=== PATIENT | female | born 1990 | race Caucasian/White ===

== ENCOUNTER 2024-11-14 08:04 | Emergency (ER) | payer BC, SELFPAY ==
[2024-11-14 08:05] VITALS: BP 130/79
--- NOTE | 2024-11-14 08:10 | ED.GENMED ---
History of Present Illness
General
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
Time Seen by Provider: 11/14/24 08:10
History of Present Illness
History of Present Illness:
FOCUSED PAST MEDICAL HISTORY
- Hypothyroidism, has had herpes
REVIEW OF OLD RECORDS
- No old records available for review in [facility]
Note:
CHIEF COMPLAINT(S)
Pain and swelling on the wall of the labia, starting night.
HISTORY OF PRESENT ILLNESS
The patient is a [id number] female presenting with pain and swelling on the wall of the labia, which began on night. The parent reports no prior occurrences of similar symptoms. No fever has been noted. The patients parent is in
communication with the patients sales applications engineer via their portal. The patient has been applying warm compresses to the area without resolution of symptoms.
PHYSICAL EXAM
General: Alert, no acute distress.
Skin: Warm, dry.
Head: Normocephalic, atraumatic.
Neck: Supple, trachea midline.
Ears, Nose, Mouth, and Throat: Oral mucosa moist.
Cardiovascular: Normal peripheral perfusion, No edema.
: There is a 2 cm cystic lesion in the lower left labial region with no surrounding cellulitis�there is moderate tenderness to palpation
Respiratory: Respirations are non-labored.
Gastrointestinal: Abdomen nondistended.
Back: Normal range of motion, Normal alignment.
Musculoskeletal: Normal ROM, normal strength.
Neurological: Alert and oriented to person, place, time, and situation, No focal neurological deficit observed.
Psychiatric: Cooperative, appropriate mood & affect.
PROBLEM LIST
Acute: Pain and swelling on the labia.
PLAN
The plan involves administering local anesthesia to the affected area, making a small incision to allow for drainage of pus. A word catheter will be applied if available, although its presence was not confirmed during this encounter.
DIFFERENTIAL DIAGNOSIS
The Differential Diagnosis includes, in no particular order and is not limited to:
1. Bartholins cyst
2. Abscess
3. Localized cellulitis
4. Folliculitis
5. Hematoma
6. Vulvovaginitis
7. Infected sebaceous cyst
8. Lymphadenitis
9. Contact dermatitis
10. Inguinal hernia
Disposition:
SUMMARY OF ENCOUNTER
The patient, a [id number] female, presented to the emergency department with pain and swelling on the wall of the labia since night, indicating a potential Bartholins cyst or abscess. The warm compresses applied had not resolved the
symptoms. On examination, findings were consistent with a Bartholins cyst/abscess.
PROCEDURES
Bartholin cyst drainage and placement of Word catheter
PLAN
The plan is for the patient to continue following up with their sales applications engineer for further management and monitoring of the condition to ensure complete healing and to address any potential recurrence.
MEDICAL DECISION MAKING
-Complexity of Data Reviewed: Acute condition affecting care - differential diagnosis included Bartholins cyst, abscess, localized cellulitis, folliculitis, hematoma, vulvovaginitis, infected sebaceous cyst, lymphadenitis, contact dermatitis, and
inguinal hernia. The most likely was a Bartholins cyst/abscess given the presentation and examination findings.
DIAGNOSIS
Bartholins cyst/abscess (ICD-10-CM: N75.1)
This note is generated from the clinical content provided, capturing critical information of the encounter and care management for accurate medical documentation.
Phy Exam
Physical Exam
Physical Exam:
See HPI
Course
Orders/Labs/Results
Orders:
Orders
11/14/24 08:34
Wound Culture [Wound/Abscess/Other Culture] Urgent
SON Source: Abscess
Specimen Description:
Date Specimen was Collected: 11/14/24
Time Specimen was Collected: 08:36
Comment: L labia / bartholin's
Sulfamethox./Trimethoprim Ds [Bactrim Ds 800 mg/160 mg] 1 tablet PO NOW STA
Vital Signs
Initial and Last Documented VS:
Initial Vital Signs
Temp Pulse Resp BP Pulse Ox
37.0 C 90 16 130/79 98
11/14/24 08:05 11/14/24 08:05 11/14/24 08:05 11/14/24 08:05 11/14/24 08:05
Last Documented Vital Signs
Temp Pulse Resp BP Pulse Ox
37.0 C 90 16 130/79 98
11/14/24 08:05 11/14/24 08:05 11/14/24 08:05 11/14/24 08:05 11/14/24 08:11
Procedures
Incision/Drainage/Joint Aspiration
Left Lower Vagina:
Anethesia: 1% Lidocaine with Epi
Preparation: cleaned with Hibiclens
Type of procedure: incise and drain
Nature of site: abscess
Description of abscess: less than 3cm
Loculations broken up: Yes
How much fluid was obtained?: small amount
Fluid description: cloudy and purulent
Treatment: other (Word catheter)
*Pulse Oximetry
SaO2: 98
Oxygen Mode of Delivery: Room air
Patient hypoxic: no
*Critical Care Note
Total Time (30-74mins, 75-104mins- exclusive of procedures): Not Applicable
ED Attending Note
-
Portions of this chart may have been created with voice recognition software.� Occasional wrong word or��sound alike� substitutions may have occurred due to the inherent limitations of voice recognition software.
Discharge Plan
Departure
Patient Disposition: Home (Routine Discharge)
Date of Disposition: 11/14/24
Time of Disposition: 08:35
Patient with high blood pressure during this ER visit?: Yes
Discharge Problem:
Bartholin's gland abscess
Instructions: Bartholin gland cyst, BLOOD PRESSURE
Prescriptions:
New
sulfamethoxazole-trimethoprim [Bactrim DS] 800-160 mg tablet
1 tab PO BID Qty: 14 0RF
Referrals:
Oriana Nicholson MD [Active, Gynecology]
Activity Restrictions/Additional Instructions:
We drained a moderate amount of pus and fluid from the left Bartholin cyst/abscess. We placed a Word catheter. If this falls out, it just leave it out. If it is bothering you can even just pull it out as I only inflated the balloon a little bit.
I sent a prescription for Bactrim to the [facility] at [address] A wound culture is pending. Return if worse or other concerns. Follow-up with your sales applications engineer to have the catheter removed in a few days. I have given you the contact information for a
local sales applications engineer if needed, Dr Nicholson.
Interventions
Interventions:
*Risk Screen - Suicide Last Done: 11/14/24 08:05
*General Assessment Last Done: 11/14/24 08:19
*Neglect/Abuse Screening Last Done: 11/14/24 08:05
*ED- Fall Risk Assessment Last Done: 11/14/24 08:19
*ED COVID-19 Vaccine History Last Done: 11/14/24 08:19
*ED Influenza Vaccine History Last Done: 11/14/24 08:19
Discharge Date and Time
Print Language: ALBANIAN
[2024-11-14 08:18] VITALS: BMI 24.9
[2024-11-14] MEDS: BACTRIM DS 800 MG/160 MG 1 TABLET PO (08:53)
== END 2024-11-14 09:00 | disposition home or self-care (01) ==
LOC: EMR 08:04
PROVIDERS: EMERGENCY PHYSICIAN Emergency Medicine; FAMILY PHYSICIAN Internal Medicine
DX: N75.1 Abscess of Bartholin's gland (principal); E03.9 Hypothyroidism, unspecified
CPT/HCPCS: 56420; 99283; 87070; 87147; 87186; 87205